=== PATIENT | male | born 1960 | race Native Hawaiian/Other Pacific Islander ===

== ENCOUNTER 2017-02-13 20:25 | Emergency (ER) | payer OTHER | END 2017-02-13 21:58 | disposition home or self-care (01) | DX: M25.462 Effusion, left knee (principal); M17.12 Unilateral primary osteoarthritis, left knee; I10 Essential (primary) hypertension; E11.9 Type 2 diabetes mellitus without complications ==

== ENCOUNTER 2019-08-07 08:31 | Emergency (ER) | payer OTHER ==
--- NOTE | 2019-08-07 08:38 | ED Physician Documentation ---
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 No: Trauma, Anticoagulated Similar symptoms before: Diagnosis (back spasms/strain - no ongoing back pains) Recently seen: Clinic Review of Systems Constitutional: denies: Fever, Chills Cardiac: denies: Chest pain / pressure Respiratory: denies: Dyspnea, Cough GI: denies: Abdominal Pain, Nausea, Vomiting : denies: Dysuria, Hematuria Skin: denies: Rash, Lesions PD PAST MEDICAL HISTORY - Past Medical History Cardiovascular: Hypertension Respiratory: None Endocrine/Autoimmune: Type 2 diabetes GI: None : None HEENT: None Psych: None Musculoskeletal: None Derm: None - Past Surgical History Past Surgical History: Yes General: Other HEENT: Tonsil/Adenoidectomy - Present Medications Home Medications: Ambulatory Orders Medication Instructions Recorded Confirmed Hydrocodone/Acetaminophen [Kendall 1 each PO Q6H PRN #20 tablet 08/07/19 5-325 Tablet] Naproxen 500 mg PO BID #20 tablet 08/07/19 Tizanidine HCl 4 mg PO TID PRN #25 capsule 08/07/19 dexAMETHasone [Decadron] 4 mg PO DAILY #5 tablet 08/07/19 - Allergies Allergies/Adverse Reactions: Allergies Allergy/AdvReac Type Severity Reaction Status Date / Time metformin AdvReac Rash Verified 08/07/19 08:37 - Social History Does the pt smoke?: No Smoking Status: Never smoker Does the pt drink ETOH?: Yes Does the pt have substance abuse?: No - Immunizations Immunizations are current?: Yes - POLST Patient has POLST: No PD ED PE NORMAL - Vitals Vital signs reviewed: Yes - General General: Alert and oriented X 3, Well developed/nourished, Other (appears in pain and has guarded ROM of the low back, with pain on ROM. ) - Cardiac Cardiac: RRR, No murmur - Respiratory Respiratory: Clear bilaterally - Abdomen Abdomen: Soft, Non tender - Back Back: No CVA TTP, No spinal TTP (but is tender right low lumbar and SI area. No rash nor sores. ) - Derm Derm: Normal color, Warm and dry - Extremities Extremities: No tenderness to palpate, Normal ROM s pain - Neuro Neuro: Alert and oriented X 3, No motor deficit, No sensory deficit, Other (normal knee reflexes) Results - Vitals Vitals: Vital Signs - 24 hr 08/07/19 08/07/19 08:35 10:04 Temperature 36.7 C Heart Rate 75 72 Respiratory 16 14 Rate Blood Pressure 183/90 H 163/91 H O2 Saturation 98 97 Oxygen O2 Source Room air PD MEDICAL DECISION MAKING - ED course Complexity details: considered differential (no red flags. Has tender right low lumbar and SI area, and I did trigger injection there. ), d/w patient Departure - Departure Disposition: 01 Home, Self Care Clinical Impression: Low back strain Qualifiers: Encounter type: initial encounter Qualified Code(s): S39.012A - Strain of muscle, fascia and tendon of lower back, initial encounter Sciatica Qualifiers: Laterality: right Qualified Code(s): M54.31 - Sciatica, right side Condition: Stable Record reviewed to determine appropriate education?: Yes Instructions: ED Low Back Pain Injury, ED Sciatica Prescriptions: dexAMETHasone [Decadron] 4 mg PO DAILY #5 tablet Hydrocodone/Acetaminophen [Kendall 5-325 Tablet] 1 each PO Q6H PRN #20 tablet PRN Reason: Pain Naproxen 500 mg PO BID #20 tablet Tizanidine HCl 4 mg PO TID PRN #25 capsule PRN Reason: Spasms Comments: Heat and gentle stretching for the low back to reduce stiffness and spasm. Naproxen anti-inflammatory twice daily for the next 7 to 10 days with food. Also add Decadron steroid daily for 5 days. We did a local injection in the back as well that was a steroid 2. I will try to work locally at that area. Add tizanidine muscle relaxant if needed for spasms. Add Tylenol or hydrocodone as needed for pain. Follow-up with your primary care tomorrow as planned. Discharge Date/Time: 08/07/19 10:10
[2019-08-07] MEDS ORDERED: TRIAMCINOLONE 40 MG/ML VIAL IM STA (08:57)
[2019-08-07] MEDS ORDERED: BUPIVACAINE 0.5%-EPI 1:200000 PF 10 ML VIAL SUBQ STA (08:57)
[2019-08-07] MEDS ORDERED: KETOROLAC 30 MG/ML VIAL IM STA (08:57)
[2019-08-07] MEDS ORDERED: HYDROmorphone 2 MG/ML VIAL IM STA (08:57)
[2019-08-07] MEDS ORDERED: METHOCARBAMOL 500 MG TABLET PO STA (08:58)
[2019-08-07 10:07] VITALS: BP 163/91
== END 2019-08-07 10:10 | disposition home or self-care (01) ==
LOC: ED 08:31
DX: S39.012A Strain of muscle, fascia and tendon of lower back, initial encounter (principal); X50.0XXA Overexertion from strenuous movement or load, initial encounter; Y93.89 Activity, other specified; M54.41 Lumbago with sciatica, right side; I10 Essential (primary) hypertension; E11.9 Type 2 diabetes mellitus without complications
CPT/HCPCS: 96372; 99283; 99284; A9270; J1170